=== PATIENT | female | born 1985 | race Caucasian/White ===

== ENCOUNTER 2016-12-06 10:46 | Outpatient (CLI) | payer OTHER ==
[2016-12-06 19:22] LABS: BASOPHILS % (AUTO) 0.7 %; EOSINOPHILS # (AUTO) 0.1 10^3/uL (0.0-0.7); EOSINOPHILS % (AUTO) 0.8 %; HCT - HEMATOCRIT 38.8 % (37.0-47.0); HGB - HEMOGLOBIN 12.8 g/dL (12.0-16.0); LYMPHOCYTES # (AUTO) 1.8 10^3/uL (1.5-3.5); LYMPHOCYTES % (AUTO) 24.2 %; MEAN CORPUSCULAR HEMOGLOBIN 29.2 pg (27.0-31.0); MEAN CORPUSCULAR VOLUME 88.5 fL (81.0-99.0); MEAN PLATELET VOLUME 9.1 fL (7.9-10.8); MONOCYTES # (AUTO) 0.6 10^3/uL (0.0-1.0); MONOCYTES % (AUTO) 8.4 %; NEUTROPHILS # (AUTO) 4.8 10^3/uL (1.5-6.6); NEUTROPHILS % (AUTO) 65.9 %; RED BLOOD COUNT 4.38 10^6/uL (4.20-5.40); RED CELL DISTRIBUTION WIDTH 14.3 % (12.0-15.0); UNCORRECTED WHITE BLOOD COUNT 7.3 x10^3/uL; WHITE BLOOD COUNT 7.3 x10^3/uL (4.8-10.8)
[2016-12-06 19:45] LABS: URIC ACID 4.5 mg/dL (2.6-7.2)
== END 2016-12-16 23:59 | disposition home or self-care (01) ==
LOC: LAB.WCP 10:46
PROVIDERS: ATTEND Physician Assistant Medical
DX: M79.672 Pain in left foot (principal)
CPT/HCPCS: 36415; 84550; 85025; 85651; 86140; 86430

== ENCOUNTER 2017-01-24 14:53 | Outpatient (CLI) | payer OTHER ==
--- NOTE | 2017-01-24 21:57 | MRI Report ---
EXAM: LEFT FOREFOOT MRI WITHOUT CONTRAST EXAM DATE: 01/24/2017 03:42 PM. CLINICAL HISTORY: Pain over the sesamoids for 5 weeks. COMPARISON: None. TECHNIQUE: Multiplanar, multisequence T1-weighted and fluid-sensitive sequences of the forefoot witho ut contrast. Other: None. FINDINGS: Bones: There is some mild periarticular marrow edema in the inferior portion of the distal first meta tarsal, as well as the medial sesamoid. No fractures. Joints: No subluxations. A moderate effusion is in the first metatarsophalangeal joint. The sesamoid phalangeal ligaments appear intact. Intersesamoid ligament is likely visible on coronal image 13. The re is a question of a sagittal focal plantar plate tear on the lateral side of the flexor tendon on s eries [id number], image 11. Articular Cartilage: Unremarkable. Ligaments: The visualized collateral ligaments are intact. Tendons: The flexor and extensor tendons are unremarkable. Musculature: No edema or fatty atrophy. Other: Small amount of fluid in the first and third intermetatarsal bursa. Intermetatarsal bursitis c annot be excluded. The subcutaneous tissues are unremarkable. IMPRESSION: 1. Moderate effusion of the first metatarsophalangeal joint with some surrounding reactive marrow fernanda ma. This could reflect early degenerative change, trauma or medial sesamoiditis. 2. Questionable focal lateral plantar plate tear of the first metatarsophalangeal joint. MRI arthrogr am could be used for confirmation if clinically indicated. [facility] MUSCULOSKELET[facility]IOLOG[facility] SECTION Referring Provider Line: [phone] SITE ID: [id number]
== END 2017-01-24 14:54 | disposition home or self-care (01) ==
LOC: DI 14:53
PROVIDERS: ATTEND Podiatrist
DX: M25.475 Effusion, left foot (principal); R60.0 Localized edema

== ENCOUNTER 2018-10-14 15:00 | Outpatient (CLI) | payer OTHER ==
--- NOTE | 2018-10-14 15:55 | XRAY Report ---
Reason: FOOT PAIN,LEFT Procedure Date: 10/14/2018 Accession Number: [id number] / [id number] Procedure: [facility] - Foot 3 View LT CPT Code: FULL RESULT: EXAM: LEFT FOOT RADIOGRAPHY EXAM DATE: 10/14/2018 03:10 PM. CLINICAL HISTORY: Foot pain, left. COMPARISON: FOOT 3 VIEW LT 12/06/2016 10:14 AM. TECHNIQUE: 3 views. FINDINGS: Bones: There is mild to moderate inferior calcaneal spurring with acute appearing fracture of the inferior calcaneal spur. No fractures or bone lesions. Joints: Normal. No subluxations. Soft Tissues: Plantar soft tissue swelling in the heel region. IMPRESSION: Fracture of the inferior calcaneal spur. [facility]
== END 2018-10-14 15:01 | disposition home or self-care (01) ==
LOC: DI.WCP 15:00
PROVIDERS: ATTEND Physician Assistant Medical
DX: S92.002A Unspecified fracture of left calcaneus, initial encounter for closed fracture (principal)

== ENCOUNTER 2019-06-22 16:42 | Outpatient (CLI) | payer OTHER | END 2019-06-22 16:43 | disposition home or self-care (01) | LOC: COV 16:42 | PROVIDERS: ATTEND Family Medicine | DX: R05 Cough (principal); R50.9 Fever, unspecified | CPT/HCPCS: 81599 ==

== ENCOUNTER 2021-08-17 18:48 | Outpatient (CLI) | payer MEDICAID ==
--- NOTE | 2021-08-18 08:44 | Ultrasound Report ---
PROCEDURE: Pelvic w/Transvaginal INDICATIONS: LEFT LOWER QUAD PAIN TECHNIQUE: Real-time scanning was performed of the pelvic organs, with image documentation. Additional endovagi nal scanning was necessary due to incomplete visualization of the adnexal and endometrial structures by transabdominal scanning. COMPARISON: None. FINDINGS: Limited scanning through the kidneys shows no hydronephrosis. No pathologic free abdominal or pelvic fluid. Uterus: Uterus is normal in size at 10.8 x 5.3 x 6.2 cm. The endometrium measures 3.1 mm in combine d thickness. An IUD is seen within appropriate position within the endometrium. Ovaries: Both ovaries have a normal size and appearance measuring 4.3 x 1.6 x 1.7 cm on the right an d 4.4 x 1.6 x 1.1 cm on the left. Normal follicles are present bilaterally. Other: There is free fluid in the posterior cul-de-sac. IMPRESSION: 1. No acute abnormality. 2. Normal-appearing ovaries with normal follicles. 3. IUD is in good position. 4. Fluid is noted in the posterior cul-de-sac, a nonspecific finding which could be physiologic or po ssibly a recently ruptured cyst. Reviewed by: Arnold Del Toro on 08/18/2021 8:43 AM PDT Approved by: Arnold Del Toro on 08/18/2021 8:43 AM PDT Station ID: [id number]
== END 2021-08-17 18:49 | disposition home or self-care (01) ==
LOC: DI 18:48
PROVIDERS: ATTEND Registered Nurse
DX: R10.32 Left lower quadrant pain (principal); Z97.5 Presence of (intrauterine) contraceptive device

== ENCOUNTER 2023-03-21 07:37 | Outpatient (CLI) | payer MEDICAID ==
[2023-03-21 12:23] LABS: BASOPHILS % (AUTO) 0.7 %; EOSINOPHILS # (AUTO) 0.1 10^3/uL (0.0-0.7); EOSINOPHILS % (AUTO) 2.2 %; HCT - HEMATOCRIT 39.2 % (37.0-47.0); HGB - HEMOGLOBIN 12.9 g/dL (12.0-16.0); LYMPHOCYTES # (AUTO) 1.8 10^3/uL (1.5-3.5); LYMPHOCYTES % (AUTO) 33.7 %; MEAN CORPUSCULAR HEMOGLOBIN 29.5 pg (27.0-31.0); MEAN CORPUSCULAR HGB CONC 32.9 g/dL (32.0-36.0); MEAN CORPUSCULAR VOLUME 89.7 fL (81.0-99.0); MEAN PLATELET VOLUME 10.7 fL (7.9-10.8); MONOCYTES # (AUTO) 0.5 10^3/uL (0.0-1.0); MONOCYTES % (AUTO) 8.5 %; NEUTROPHILS % (AUTO) 54.7 %; PLT - PLATELET COUNT 335 10^3/uL (130-450); RED BLOOD COUNT 4.37 10^6/uL (4.20-5.40); RED CELL DISTRIBUTION WIDTH 13.2 % (12.0-15.0); WHITE BLOOD COUNT 5.4 x10^3/uL (4.8-10.8)
[2023-03-21 12:38] LABS: ALBUMIN 4.4 g/dL (3.2-5.5); ALKALINE PHOSPHATASE 37 IU/L (42-121); ALT ALANINE AMINOTRANSFERASE 12 IU/L (10-60); AST ASPARTATE AMINOTRANSFERASE 13 IU/L (10-42); BILIRUBIN,TOTAL 0.6 mg/dL (0.2-1.0); BUN - BLOOD UREA NITROGEN 16 mg/dL (6-20); CALCIUM 9.2 mg/dL (8.5-10.3); CARBON DIOXIDE - CO2 28 mmol/L (21-32); CHLORIDE 104 mmol/L (101-111); CHOL/HDL RATIO 2.7 (<4.4); CHOLESTEROL 207 mg/dL; CREATININE 0.7 mg/dL (0.6-1.3); GFR - MDRD 93 (>89); GLUCOSE 91 mg/dL (74-104); HDL CHOLESTEROL 78 mg/dL; LDL CHOLESTEROL,CALCULATED 113 mg/dL; LDL/HDL RATIO 1.4 (<4.4); SODIUM 137 mmol/L (135-145); TOTAL PROTEIN 6.6 g/dL (6.4-8.9); TRIGLYCERIDES 79 mg/dL (48-352); VLDL CHOLESTEROL 16 mg/dL
[2023-03-21 13:11] LABS: THYROID STIMULATING HORMONE 0.89 uIU/mL (0.34-5.60)
[2023-03-21 16:21] LABS: RHEUMATOID FACTOR NEGATIVE (Negative)
[2023-03-22 16:08] LABS: ANTI-DNA (DS) AB QN <1 IU/mL (0-9)
[2023-03-24 16:08] LABS: ANTINUCLEAR ANTIBODIES IFA Negative (.)
== END 2023-03-21 07:38 | disposition home or self-care (01) ==
LOC: LAB.N 07:37
PROVIDERS: ATTEND Physician Assistant Medical
DX: Z00.00 Encounter for general adult medical examination without abnormal findings (principal); M25.50 Pain in unspecified joint
CPT/HCPCS: 36415; 80053; 80061; 83721; 84443; 85025; 85651; 86038; 86225; 86430